=== PATIENT | male | born 1970 | race Caucasian/White ===

== ENCOUNTER 2018-02-25 17:37 | Emergency (ER) | payer BC ==
[~2018-02-25] VITALS: Ht 190.5 cm; Wt 136.4 kg
[2018-02-25 17:45] VITALS: TEMP 98.7
[2018-02-25] MEDS ORDERED: VITAMIN D31000 I1 PO (18:23)
[2018-02-25] MEDS ORDERED: PRILOSEC 20MG20 MG PO (18:23)
[2018-02-25] MEDS ORDERED: MULTIPLE VITAMI1 CAP PO (18:24)
[2018-02-25] MEDS ORDERED: CALCIUM CARBON650 M2 (18:24)
[2018-02-25] MEDS ORDERED: VITAMIN B-625 MG (18:24)
[2018-02-25 18:26] LABS: BASO % 0.5 % (0.0-2.0); EOS # 0.2 (0.0-0.7); EOS % 2.6 % (0-4.0); GRAN # 4.7 (1.4-6.5); GRAN % 63.6 % (42.2-75.2); HEMOGLOBIN 14.5 g/dl (13.5-18.0); LYMPH # 1.9 (1.2-3.4); LYMPH % 26.2 % (20.0-51.0); MEAN CELL VOLUME 89 fl (80.0-100.0); MEAN CORPUSCULAR HEMOGLOBIN 29 pg (27.0-31.0); MEAN CORPUSCULAR HGB CONC 33 g/dl (33.0-37.0); MEAN PLATELET VOLUME 11.3 fl (7.4-10.4); MONO # 0.5 (0.1-0.6); MONO % 6.8 % (1.7-9.3); PLATELET COUNT 229 K/mm3 (130-400); RED BLOOD COUNT 4.96 M/mm3 (4.20-5.60); REDCELL DISTRIBUTION WIDTH-CV 13.5 % (11.5-14.5)
[2018-02-25 18:31] LABS: INR 1.1 (0.8-3.0); PROTHROMBIN TIME 12.5 SECONDS (9.7-12.8)
[2018-02-25 18:39] LABS: ALBUMIN 4.3 gm/dL (3.5-5.0); BILIRUBIN,TOTAL 0.8 mg/dL (0.0-1.0); CALCIUM 9.2 mg/dL (8.4-10.2); CREATININE, serum 0.93 mg/dL (0.66-1.25); POTASSIUM 3.9 mmol/L (3.4-5.0); TOTAL PROTEIN 7.4 gm/dL (6.4-8.2)
[2018-02-25 18:43] LABS: C-REACTIVE PROTEIN 0.5 mg/dL (0.0-0.9)
[2018-02-25 19:26] VITALS: BP 157/95; PULSE 58
== END 2018-02-25 19:25 | disposition home or self-care (01) ==
LOC: COL.ER 17:37
PROVIDERS: Family Medicine
DX: R41.82 Altered mental status, unspecified (principal)
CPT/HCPCS: J7030